=== PATIENT | female | born 2000 | race Two or more races ===

== ENCOUNTER 2021-11-02 15:58 | Emergency (ER) | payer SELFPAY ==
[~2021-11-02] VITALS: Ht 160 cm; Wt 59.0 kg
--- NOTE | 2021-11-02 16:11 | NUR ---
BIBS FOR C/O LOW ABDOMINAL PAIN AND LOW BACK PAIN SINCE JULY 2021, WORSE X 2 WEEKS SPECIALLY "WHEN HAVING SEX",9 WEEKS . THE PATIENT RATES PAINS 5/10. WILL CONTINUE TO MONITOR THE PATIENT.
--- NOTE | 2021-11-02 17:12 | NUR ---
US TECH AT THE BEDSIDE
[2021-11-02] MEDS ORDERED: ONDANSETRON HCL/PF 4 MG/2 ML VIAL ONE (17:56)
[2021-11-02] MEDS ORDERED: IV NS 0.9% 1,000 ML BAG IV ONE (18:00)
[2021-11-02] MEDS ORDERED: ONDANSETRON HCL/PF 4 MG/2 ML VIAL IVP ONE (18:00)
--- NOTE | 2021-11-02 18:00 | NUR ---
iv line is established, blood specimen collected and sent to the lab. the line is saline locked
[2021-11-02 18:30] LABS: CALCIUM, SERUM 9.5 mg/dL (8.5-10.1); CREATININE 0.8 mg/dL (0.6-1.3); POTASSIUM 3.8 mmol/L (3.5-5.1)
[2021-11-02 18:58] LABS: ALBUMIN 3.9 g/dL (3.4-5.0); BILIRUBIN,DIRECT 0.1 mg/dL (0.0-0.2); BILIRUBIN,TOTAL 0.3 mg/dL (0.2-1.0); TOTAL PROTEIN, SERUM 8.3 g/dL (6.4-8.2)
--- NOTE | 2021-11-02 19:32 | NUR ---
report given to nurse Miller for valarie
[2021-11-02 19:35] LABS: BILIRUBIN,URINE NEGATIVE (NEGATIVE); COLOR,URINE YELLOW (YELLOW); LEUKOCYTE ESTERASE ,URINE MODERATE (NEGATIVE); NITRITE, URINE POSITIVE (NEGATIVE); PH,URINE 5.5 (5.0-8.0); PROTEIN,URINE 30 mg/dl (NEGATIVE); UGLUCOSE NEGATIVE (NEGATIVE); UROBILINOGEN,URINE 0.2 EU/dL (0.2)
[2021-11-02 19:48] LABS: BASOPHILS % (AUTO) 0.1 % (0.0-2.0); EOSINOPHILS % (AUTO) 0.2 % (0.0-6.0); HEMATOCRIT 37 % (33-45); HEMOGLOBIN 12.7 g/dL (11.5-14.8); LYMPHOCYTES # (AUTO) 1.8 K/uL (0.8-4.8); LYMPHOCYTES % (AUTO) 21.1 % (20.0-44.0); MEAN CORPUSCULAR HGB CONC 34 g/dl (31.0-36.0); MEAN CORPUSCULAR VOLUME 86 fL (82-100); MONOCYTES # (AUTO) 0.5 K/uL (0.1-1.30); MONOCYTES % (AUTO) 5.7 % (2.0-12.0); NEUTROPHILS # (AUTO) 6.2 K/uL (1.8-8.9); NEUTROPHILS % (AUTO) 72.9 % (43.0-81.0); PLATELET COUNT (AUTO) 228 K/uL (150-450); RED BLOOD CELL COUNT(AUTO) 4.36 MIL/uL (4.0-5.2); WHITE BLOOD COUNT (AUTO) 8.5 K/uL (4.3-11.0)
[2021-11-02] MEDS ORDERED: CEPH500T PO (20:08)
[2021-11-02] MEDS ORDERED: IBUP-1957 PO (20:08)
--- NOTE | 2021-11-02 20:22 | NUR ---
Patient discharged to home in stable condition. Written and verbal after care instructions given. Patient verbalizes understanding of instruction.IV removed. Catheter intact and site benign. Pressure and 4x4 applied to site. No bleeding noted.
[2021-11-02 20:32] LABS: BACTERIA,URINE Many /HPF (None Seen); SQUAMOUS EPITHELIAL CELL,UR Moderate /HPF (None Seen)
[2021-11-02 20:38] VITALS: BP 104/54
== END 2021-11-02 20:23 | disposition home or self-care (01) ==
LOC: ER 16:08
DX: O20.0 Threatened abortion (principal); N39.0 Urinary tract infection, site not specified; Z60.2 Problems related to living alone; Z3A.01 Less than 8 weeks gestation of pregnancy
CPT/HCPCS: 99284; 96374; 76856; 96361; 85025; 80048; 87077; 87086; 80076; 87186; 81001; 36415; 85730; 86850; 84702; J2405; J7030